=== PATIENT | female | born 1950 | race Caucasian/White ===

== ENCOUNTER 2018-12-14 06:02 | Day surgery (SDC) | payer MEDICARE, OTHER ==
[2018-12-14] MEDS ORDERED: PROPOFOL 40 ML (09:31)
== END 2018-12-14 15:54 | disposition home or self-care (01) ==
LOC: GIL 06:02
DX: K64.8 Other hemorrhoids (principal); K63.89 Other specified diseases of intestine; K57.30 Diverticulosis of large intestine without perforation or abscess without bleeding; I10 Essential (primary) hypertension; E78.5 Hyperlipidemia, unspecified; E11.9 Type 2 diabetes mellitus without complications
CPT/HCPCS: 45380; 82962; 88305